=== PATIENT | male | born 1975 | race Caucasian/White ===

== ENCOUNTER 2018-12-14 10:35 | Emergency (ER) | payer OTHER ==
[2018-12-14 10:43] VITALS: BP 163/98
--- NOTE | 2018-12-14 11:12 | UC ---
Lower Extremity/Ankle HPI - HPI Summary HPI Summary: patient has history of gout, usually treated with indomethacin and colchicine and better within 24h. However this guero, pain started 5-6 days ago, he finished 6 doses colchicine and no better. he was on vacation 2 weeks ago and ate shell fish which may have precipitated symps. He was also put on Xarelto before vacation for a "clot in varicose vein" he states it was precautionary and that he was tod he could stop it after vacation. last dose was last night. he is concerned that tis episode is worse than any other time he had gout. He reports more swelling, redness and pain that is extending t toe and top of foot instead of just large toe joint. Denies fever or chills. denies trauma or skin breaks to foot but was swimming in unchlorinated water on vacation - History of Current Complaint Chief Complaint: UCLowerExtremity Stated Complaint: SWOLLEN TOE Time Seen by Provider: 12/14/18 10:46 Hx Obtained From: Patient Onset/Duration: Gradual Onset Severity Initially: Mild Severity Currently: Severe Pain Intensity: 8 Aggravating Factor(s): Ambulation, Other - touching area Alleviating Factor(s): Rest, Elevation Able to Bear Weight: Yes - Risk Factors Gout Risk Factors: Age Over 40, Male, Hypertension, Obesity - Allergies/Home Medications Allergies/Adverse Reactions: Allergies Allergy/AdvReac Type Severity Reaction Status Date / Time No Known Allergies Allergy Verified 12/14/18 10:43 PMH/Surg Hx/FS Hx/Imm Hx Previously Healthy: Yes Cardiovascular History: Hypertension, Other - varicose veins Respiratory History: Asthma - Surgical History Surgical History: None Surgery Procedure, Year, and Place: None - Family History Known Family History: Positive: Hypertension, Diabetes, Other - Varicose veins. Denies history of hypercoagulable states in his fam. - Social History Occupation: Employed Full-time Lives: With Family Alcohol Use: Daily Substance Use Type: None Smoking Status (MU): Never Smoked Tobacco Review of Systems All Other Systems Reviewed And Are Negative: Yes Constitutional: Positive: Negative Skin: Positive: Other - erythemic swollen, warm, tender area R MCP and great toe Respiratory: Positive: Negative Cardiovascular: Positive: Negative Musculoskeletal: Positive: Decreased ROM - R 1st toe d/t pain Neurological: Positive: Negative Psychological: Positive: Negative Is Patient Immunocompromised?: No Physical Exam Triage Information Reviewed: Yes Appearance: Pain Distress - hold toe away from contact with shoe, guarding area from touch, Obese Vital Signs: Initial Vital Signs Temp 98.4 F 12/14/18 10:40 Pulse 84 12/14/18 10:40 Resp 17 12/14/18 10:40 BP 163/98 12/14/18 10:40 Pulse Ox 99 12/14/18 10:40 Vital Signs Reviewed: Yes Cardiovascular Exam: Normal Abdominal Exam: Normal Neurological Exam: Normal Psychological Exam: Normal Skin Exam: Other - erythemic, swollen, war, tender R MTP and toe joint that extends to top of foot Lower Extremity Course/Dx - Differential Dx/Diagnosis Differential Diagnosis/HQI/PQRI: Bursitis, Cellulitis, Gout Provider Diagnosis: Gout Discharge - Sign-Out/Discharge Documenting (check all that apply): Patient Departure All imaging exams completed and their final reports reviewed: No Studies - Discharge Plan Condition: Stable Disposition: HOME Prescriptions: Cephalexin CAP* [Keflex 500 CAP*] 500 mg PO QID #28 cap Indomethacin 50 mg PO TID #30 capsule Patient Education Materials: Gout (ED) Referrals: Darryl Everett MD [Primary Care Provider] - (as scheduled next week) Additional Instructions: STOP XARELTO ( DICUSSED WITH YOUR NIGHT COURT MAGISTRATE.) START INDOCIN TOMORROW (24HOURS AFTER LAST DOSE XARELTO ICE AND ELEVATE YOUR FOOT OFTEN POSSIBLE TYLENOL 1000MG EVERY 6 HOURS NEEDED FOR PAIN START ANTIBIOTIC TODAY - Billing Disposition and Condition Condition: STABLE Disposition: Home
--- OUTSIDE RECORDS SUMMARY | 2018-12-14 12:21 | XMS REPORT | Continuity of Care Document ---
:1975 External Reference #:[id number] Author Name Monique Sevilla Care Team Providers Name Role Phone Darryl Everett III, MD Primary Care Physician Unavailable Payers Date Identification Numbers Payment Provider Subscriber Policy Number: [id number] [employer] Reny Garza PayID: [id number] [address] [place] [address] Problems Active Problems Provider Date Anemia Darryl Everett M.D. Onset: 08/16/2017 Gastroesophageal reflux disease Darryl Everett M.D. Onset: 08/16/2017 Impaired fasting glycaemia Darryl Everett M.D. Onset: 08/16/2017 Mixed hyperlipidemia Darryl Everett M.D. Onset: 08/16/2017 Gout Darryl Everett M.D. Onset: 11/04/2018 Essential hypertension Darryl Everett M.D. Onset: 2018 Family History Date Family Member(s) Observation Comments Father Diabetes Father Chronic Obstructive Pulmonary Disease (COPD) Mother due to Accidental () - MVA; age 28 First Sister Diabetes Type I half sister with father in common Second Sister Drug Addiction half sister with mother in common Free Text Paternal grandmother of DVT. 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 Jogs 1 hr weekly, walks the dogs daily Allergies, Adverse Reactions, Alerts Description No Known Drug Allergies Medications Active Medications SIG Qnty Indications Ordering Provider Date Xarelto 1 PO qd - take 30tabs I80.01 Aubree Saucedo, 11/27/2018 10mg Tablets before evening M.D. meal. Take this for 45 days Losartan Potassium 1 by mouth 90tabs I10 Darryl Everett, 2018 50mg every day M.D. Tablets Colcrys 2 by mouth with 12tabs Darryl Everett, 10/22/2018 0.6mg Tablets acute gout sx. M.D. Repeat with 1 tab 1 hr later Melatonin 1 by mouth Unknown 5mg Capsules every night Lansoprazole Take One Unknown 15mg Capsule By Capsules DR Mouth Every Day Advair Diskus inhale one puff 60units Daryrl Everett, by mouth twice M.D. 250-50mcg/Dose a day Aerosol Proair HFA inhale two 8.5units Darryl Everett, 108(90Base) puffs by mouth M.D. mcg/Act Aerosol every 4 hours as needed History Medications Colchicine Edis Vasquez, SHIRA 10/22/2018 - 0.6mg Tablets 10/22/2018 Aspirin 1 by mouth every Unknown - 325mg Tablets day 11/04/2018 Nexium 1 by mouth every Unknown - 20mg Capsules DR 01/16/2017 Montelukast Sodium 1 by mouth every 60tabs Darryl Everett, - 10mg day M.D. 2018 Tablets Nasacort Allergy 24HR 2 spray both Unknown - nares once daily 2018 55mcg/Act Aerosol Zyrtec- OTC Unknown - Tablets ER 12HR 2018 Zantac 150 Maximum 1 by mouth twice Unknown - Strength a day 07/07/2017 150mg Tablets Immunizations CPT Code Status Date Vaccine Lot # [id number] Given 03/29/2018 Influenza Virus Vaccine, Quadrivalent, Split, Preservative Free [id number] Given 01/16/2017 Influenza Virus Vaccine, Quadrivalent, Split, [id number] Preservative Free 03823 Given 12/05/2016 Pneumonia Vaccine [id number] Given 12/05/2016 Tdap - Tetanus/Diptheria/Acellular Pertussis [id number] Vital Signs Date Vital Result Comment 11/27/2018 1:14pm Height 74 inches 6'2" Weight 391.00 lb Heart Rate 74 /min BP Systolic 133 mmHg BP Diastolic 92 mmHg O2 % BldC Oximetry 96 % BMI (Body Mass Index) 50.2 kg/m2 2018 10:07am Height 74 inches 6'2" Weight 380.00 lb Heart Rate 72 /min BP Systolic 145 mmHg recheck 146/98 BP Diastolic 98 mmHg recheck 146/98 Body Temperature 97.8 F O2 % BldC Oximetry 97 % BMI (Body Mass Index) 48.8 kg/m2 11/04/2018 9:25am Height 74 inches 6'2" Weight 381.00 lb Heart Rate 68 /min BP Systolic Sitting 155 mmHg BP Diastolic Sitting 103 mmHg BMI (Body Mass Index) 48.9 kg/m2 08/16/2017 11:41am Weight 366.00 lb Heart Rate 69 /min BP Systolic Sitting 132 mmHg 136/90, 139/97 pt's machine BP Diastolic Sitting 80 mmHg 136/90, 139/97 pt's machine O2 % BldC Oximetry 94 % 07/16/2017 10:12am Weight 373.00 lb Heart Rate 72 /min BP Systolic Sitting 150 mmHg L BP Diastolic Sitting 96 mmHg L O2 % BldC Oximetry 96 % 01/16/2017 9:58am Height 74 inches 6'2" Weight 352.00 lb Heart Rate 77 /min BP Systolic Sitting 136 mmHg BP Diastolic Sitting 92 mmHg Body Temperature 98.2 F O2 % BldC Oximetry 97 % BMI (Body Mass Index) 45.2 kg/m2 12/05/2016 1:37pm Height 74 inches 6'2" Weight 361.50 lb Heart Rate 80 /min BP Systolic Sitting 150 mmHg BP Diastolic Sitting 80 mmHg Respiratory Rate 16 /min BMI (Body Mass Index) 46.4 kg/m2 Results Test Date Facility Test Result H/L Range Note Order 2018 [facility] EKG viewed by Dr. Everett Urine Microalbumin 11/04/2018 [facility] Ur Microalbumin < 15.0 mg/L Random [address] (mg/L) [place] [address] [phone] Urine Creatinine 95.47 mg/dL Urine Microalbumin/Creatinine TNP <31 1 Comp Metabolic 11/04/2018 [facility] Sodium 139 mmol/L Normal 135-145 Panel [address] [place] [address] [phone] Potassium 4.7 mmol/L Normal 3.5-5.0 Chloride 102 mmol/L Normal 101-111 Co2 Carbon Dioxide 28 mmol/L Normal 22-32 Anion Gap 9 mmol/L Normal 2-11 Glucose 110 mg/dL High 70-100 Blood Urea Nitrogen 15 mg/dL Normal 6-24 Creatinine 0.91 mg/dL Normal 0.67-1.17 BUN/Creatinine Ratio 16.5 Normal 8-20 Calcium 9.6 mg/dL Normal 8.6-10.3 Total Protein 7.3 g/dL Normal 6.4-8.9 Albumin 4.3 g/dL Normal 3.2-5.2 Globulin 3.0 g/dL Normal 2-4 Albumin/Globulin Ratio 1.4 Normal 1-3 Total Bilirubin 0.50 mg/dL Normal 0.2-1.0 Alkaline Phosphatase 74 U/L Normal 34-104 Alt 33 U/L Normal 7-52 Ast 23 U/L Normal 13-39 Egfr Non- 92.3 >60 Egfr 111.7 >60 2 Laboratory test 11/04/2018 [facility] Magnesium 2.0 mg/dL Normal 1.9-2.7 3 finding [address] [place] [address] [phone] Vitamin B12 And 11/04/2018 [facility] Vitamin B12 366 pg/mL Normal 180-914 4 Folate Serum [facility] [place] [address] [phone] Folic Acid (Folate) 7.15 ng/mL >3.99 5 CBC No Diff 11/04/2018 [facility] White Blood 6.1 10^3/uL Normal 3.5-10.8 [address] [facility] [address] [phone] Red Blood Count 5.46 10^6/uL Normal 4.18-5.48 Hemoglobin 13.7 g/dL Low 14.0-18.0 Hematocrit 43 % Normal 42-52 Mean Corpuscular Volume 78 fL Low 80-94 Mean Corpuscular Hemoglobin 25 pg Low 27-31 Mean Corpuscular HGB Conc 32 g/dL Normal 31-36 Red Cell Distribution Width 16 % High 10-15 Platelet Count 231 10^3/uL Normal 150-450 Mean Platelet Volume 8.4 fL Normal 7.4-10.4 Iron & Iron Binding 11/04/2018 [facility] Iron 35 g/dL Low 50-[address] [place] [address] [phone] Unsaturated Iron Binding < 450 g/dL Total Iron Binding Capacity 465 g/dL High 250-450 Transferrin 332 mg/dL Normal 203-362 % Iron Saturation 8 % Low 15-55 Lipid Profile 11/04/2018 [facility] Triglycerides 232 mg/dL 6 (Trig/Chol/HDL) DRIVE [place], [place] [id number] [phone] Cholesterol 232 mg/dL 7 HDL Cholesterol 46.0 mg/dL 8 LDL Cholesterol 140 mg/dL 9 Laboratory test 11/04/2018 [facility] Uric Acid 8.0 mg/dL High 4.4-7.[address] [place], [place] [id number] [phone] Hemoglobin A1c (Glyco HGB) 6.2 % High 4.0-5.6 11 Laboratory test 09/10/2017 [facility] Clotest SEE RESULT [address] [place], [place] [id number] [phone] Laboratory test 09/10/2017 [facility] Surgical SEE RESULT [address] [place] [address] Order [phone] Occult 08/20/2017 [facility] Occult Blood - Positive X 2 Blood,Stool (3 Stool (o3 Spec) Laboratory test 07/16/2017 [facility] Ferritin < 10.0 ng/mL Low 24-[address] [place] [address] [phone] Hemoglobin A1c (Glyco HGB) 6.2 % High 4.0-5.6 14 Iron & Iron Binding 07/16/2017 [facility] Iron 24 g/dL Low 50-[address] [place], [place] [id number] [phone] Unsaturated Iron Binding 449 g/dL Total Iron Binding Capacity 473 g/dL High 250-450 Transferrin 338 mg/dL Normal 203-362 % Iron Saturation 5 % Low 15-55 CBC Auto 07/16/2017 [facility] White Blood 6.4 10^3/uL Normal 3.5-10.[address] [place] [address] [phone] Red Blood Count 5.09 10^6/uL Normal 4.0-5.4 Hemoglobin 11.7 g/dL Low 14.0-18.0 Hematocrit 37 % Low 42-52 Mean Corpuscular Volume 73 fL Low 80-94 15 Mean Corpuscular Hemoglobin 23 pg Low 27-31 Mean Corpuscular HGB Conc 31 g/dL Normal 31-36 Red Cell Distribution Width 17 % High 10.5-15 Platelet Count 239 10^3/uL Normal 150-450 Mean Platelet Volume 8 um3 Normal 7.4-10.4 Abs Neutrophils 3.7 10^3/uL Normal 1.5-7.7 Abs Lymphocytes 1.9 10^3/uL Normal 1.0-4.8 Abs Monocytes 0.5 10^3/uL Normal 0-0.8 Abs Eosinophils 0.3 10^3/uL Normal 0-0.6 Abs Basophils 0 10^3/uL Normal 0-0.2 Abs Nucleated RBC 0 10^3/uL Granulocyte % 57.6 % Normal 38-83 Lymphocyte % 29.8 % Normal 25-47 Monocyte % 7.4 % High 0-7 Eosinophil % 4.7 % Normal 0-6 Basophil % 0.5 % Normal 0-2 Nucleated Red Blood Cells % 0 Occult 01/22/2017 [facility] Occult Blood - Negative x 3 16 Blood,Stool (3 Stool Spec) Laboratory test 01/16/2017 [facility] Hemoglobin A1c 5.9 % Normal Less [address] (Glyco HGB) than 6.0 [place] [address] [phone] Iron & Iron 01/16/2017 [facility] Iron 41 g/dL Low 50-212 Binding Capacity [address] [place] [address] [phone] Unsaturated Iron Binding 432 g/dL Normal Total Iron Binding Capacity 473 g/dL High 250-450 % Iron Saturation 9 % Low 15-55 Laboratory test 01/16/2017 [facility] Ferritin 13.1 Low 24- [address] ng/[place] [address] [phone] CBC Auto Diff 01/16/2017 [facility] White Blood 5.5 Normal 3.5 -10.[address] Count 10^3/[place] [address] [phone] Red Blood Count 5.31 10^6/uL Normal 4.0-5.4 Hemoglobin 12.6 g/dL Low 14.0-18.0 Hematocrit 40 % Low 42-52 Mean Corpuscular Volume 75 fL Low 80-94 18 Mean Corpuscular Hemoglobin 24 pg Low 27-31 Mean Corpuscular HGB Conc 32 g/dL Normal 31-36 Red Cell Distribution Width 17 % High 10.5-15 Platelet Count 234 10^3/uL Normal 150-450 Mean Platelet Volume 9 um3 Normal 7.4-10.4 Abs Neutrophils 3.1 10^3/uL Normal 1.5-7.7 Abs Lymphocytes 1.6 10^3/uL Normal 1.0-4.8 Abs Monocytes 0.6 10^3/uL Normal 0-0.8 Abs Eosinophils 0.2 10^3/uL Normal 0-0.6 Abs Basophils 0 10^3/uL Normal 0-0.2 Abs Nucleated RBC 0 10^3/uL Normal Granulocyte % 56.3 % Normal 38-83 Lymphocyte % 29.0 % Normal 25-47 Monocyte % 10.2 % High 1-9 Eosinophil % 4.2 % Normal 0-6 Basophil % 0.3 % Normal 0-2 Nucleated Red Blood Cells % 0 Normal Laboratory test 01/15/2017 [facility] Uric Acid 7.9 mg/dL High 4.4-7.6 [address] [place] [address] [phone] CBC Auto Diff 01/15/2017 [facility] White 3.8 Normal 3.5-10.[address] Blood 10^3/[place] [address] Count [phone] Red Blood Count 5.28 10^6/uL Normal 4.0-5.4 Hemoglobin 12.4 g/dL Low 14.0-18.0 Hematocrit 39 % Low 42-52 Mean Corpuscular Volume 74 fL Low 80-94 Mean Corpuscular Hemoglobin 24 pg Low 27-31 Mean Corpuscular HGB Conc 32 g/dL Normal 31-36 Red Cell Distribution Width 17 % High 10.5-15 Platelet Count 212 10^3/uL Normal 150-450 Mean Platelet Volume 8 um3 Normal 7.4-10.4 Abs Neutrophils 1.7 10^3/uL Normal 1.5-7.7 Abs Lymphocytes 1.5 10^3/uL Normal 1.0-4.8 Abs Monocytes 0.4 10^3/uL Normal 0-0.8 Abs Eosinophils 0.2 10^3/uL Normal 0-0.6 Abs Basophils 0 10^3/uL Normal 0-0.2 Abs Nucleated RBC 0 10^3/uL Normal Granulocyte % 45.3 % Normal 38-83 Lymphocyte % 38.6 % Normal 25-47 Monocyte % 9.4 % High 1-9 Eosinophil % 6.1 % High 0-6 Basophil % 0.6 % Normal 0-2 Nucleated Red Blood Cells % 0.1 Normal Comp Metabolic 01/15/2017 [facility] Sodium 137 mmol/L Normal 133-145 Panel [address] [place], [place] [address] [phone] Potassium 4.1 mmol/L Normal 3.5-5.0 Chloride 102 mmol/L Normal 101-111 Co2 Carbon Dioxide 27 mmol/L Normal 22-32 Anion Gap 8 mmol/L Normal 2-11 Glucose 111 mg/dL High 70-100 Blood Urea Nitrogen 16 mg/dL Normal 6-24 Creatinine 0.99 mg/dL Normal 0.67-1.17 BUN/Creatinine Ratio 16.2 Normal 8-20 Calcium 9.4 mg/dL Normal 8.6-10.3 Total Protein 6.9 g/dL Normal 6.4-8.9 Albumin 4.1 g/dL Normal 3.2-5.2 Globulin 2.8 g/dL Normal 2-4 Albumin/Globulin Ratio 1.5 Normal 1-3 Total Bilirubin 0.90 mg/dL Normal 0.2-1.0 Alkaline Phosphatase 63 U/L Normal 34-104 Alt 24 U/L Normal 7-52 Ast 22 U/L Normal 13-39 Egfr Non- 84.2 Normal >60 Egfr 108.2 Normal >60 20 Lipid Profile 01/15/2017 [facility] Cholesterol 206 mg/dL Normal 21 (Trig/Chol/HDL) [address] [place] [address] [phone] Triglycerides 273 mg/dL Normal 22 HDL Cholesterol 42.2 mg/dL Normal 23 LDL Cholesterol 109 mg/dL Normal 24 1 Unable to calculate due to low microalbumin 2 Because ethnic data is not always readily available, this report includes an eGFR for both -Americans and non- Americans. The National Kidney Disease Education Program (NKDEP) does not endorse the use of the MDRD equation for patients that are not between the ages of 18 and 70, are , have extremes of body size, muscle mass, or nutritional status, or are non- or non-. According to the National Kidney Foundation, irrespective of diagnosis, the stage of the disease is based on the level of kidney function: Stage Description GFR(mL/min/1.73 m(2)) 1 Kidney damage with normal or decreased GFR 90 2 Kidney damage with mild decrease in GFR 60-89 3 Moderate decrease in GFR 30-59 4 Severe decrease in GFR 15-29 5 Kidney failure <15 (or dialysis) 3 FASTING 4 Normal Range 180 to 914 Indeterminate Range 145 to 180 Deficient Range <145 5 FASTING 6 Desirable: <150 Borderline High: 150-199 High: 200-499 Very High: >500 7 Desirable: <200 Borderline High: 200-239 High: >239 8 Low: <40 Desirable: 40-60 High: >60 9 Desirable: <100 Near Optimal: 100-129 Borderline High: 130-159 High: 160-189 Very High: >189 10 FASTING 11 Therapeutic target for the treatment of diabetes mellitus patients is <7% HBA1C, and in selective patients <6.0%. Please refer to [place] [employer] diabetic care guidelines for further information. 12 SEE RESULT BELOW Name: WILL ANDRES : [address]: Edy Mao MD Acct: [id number] Unit: [id number] AGE: 41 Location: ENDO Re09/10/17 SEX: M Status: REG REF SPEC: [id number] ELIZABETH: 09/10/17-[address] [facility] [address]: Edy Mao MD REQ: [id number] RECD: 09/10/17 STATUS: CHRIS AGUAYO DR: Darryl Everett III, MD _ SOURCE: GAS ANTRUM SPDESC: ORDERED: Clotest Procedure Result Reported Site Clotest Final 09/11/17- 901 ML Clotest Negative * ML - Main Lab . END OF REPORT DEPARTMENT OF PATHOLOGY, [address] [place] [address] Antonio Hernandez M.D. Director [facility] # [id number] 13 SEE RESULT BELOW Name: WILL ANDRES Filippo : [address]: Edy Mao MD Acct: [id number] Unit: [id number] AGE: 41 Location: ENDO Re09/10/17 SEX: M Status: DEP REF SPEC: [id number] ELIZABETH: 09/10/17-[address] [facility] [address]: Edy Mao MD REQ: [id number] RECD: 09/10/17-1316 STATUS: SURAJ AGUAYO DR: Darryl Everett III, MD _ ORDERED: LEVEL 4/3 FINAL DIAGNOSIS 1. Duodenum, biopsy: -- Benign small intestinal mucosa with no significant pathologic abnormalities. -- No evidence of villous blunting or increased intraepithelial lymphocytes. 2. Stomach, body, biopsy: -- Body-type gastric mucosa with superficial red blood cell extravasation and no other significant pathologic abnormalities. -- No evidence of Helicobacter organisms. 3. Gastroesophageal junction, biopsy: -- Squamous and columnar mucosa with chronic and focal active inflammation. -- Intestinal metaplasia is absent. -- Dysplasia is absent. POST-OPERATIVE DIAGNOSIS EGD: esophagus ? normal; stomach ? ulcers, biopsy; duodenum ? normal GROSS DESCRIPTION 1. The specimen is received in formalin labeled, Duodenal Biopsies, and consists of a 0.5 x 0.3 x 0.2 cm elmore-pink irregular soft tissue fragment which is submitted entirely in one cassette. 2. The specimen is received in formalin labeled, Gastric Body Biopsy, and consists of a 0.7 x 0.3 x 0.1 cm elmore-pink irregular soft tissue fragment which is submitted entirely in one cassette. 3. The specimen is received in formalin labeled, GE Junction Biopsy, and consists of a 0.4 x 0.2 x 0.1 cm elmore-white to pink irregular soft tissue fragment which is submitted entirely in one cassette. CONTINUED ON NEXT PAGE DEPARTMENT OF PATHOLOGY, [address] [place] [address] Antonio Hernandez M.D. Director [facility] # [id number] RUN DATE: 09/11/17 [facility] LAB LIVE PAGE 2 Patient: WILL ANDRES [id number] (Continued) GROSS DESCRIPTION (Continued) Signed by and Reported on: Tiffani Maria MD 09/11/17 1145 END OF REPORT DEPARTMENT OF PATHOLOGY, [address] [place] [address] Atnonio Hernandez M.D. Director [facility] # [id number] 14 Therapeutic target for the treatment of diabetes mellitus patients is <7% HBA1C, and in selective patients <6.0%. Please refer to [place] [employer] diabetic care guidelines for further information. 15 Consistent with Previous Results Reported on 01/15/17 16 Negative x 3 17 Therapeutic target for the treatment of diabetes Mellitus patients is <7% HBA1C, and in selective patients <6.0%.Please refer to [place] [employer] Diabetic care guidelines for further information. 18 Consistent with previous results on 01/15/2017. 19 FASTING 20 Because ethnic data is not always readily available, this report includes an eGFR for both -Americans and non- Americans. The National Kidney Disease Education Program (NKDEP) does not endorse the use of the MDRD equation for patients that are not between the ages of 18 and 70, are , have extremes of body size, muscle mass, or nutritional status, or are non- or non-. According to the National Kidney Foundation, irrespective of diagnosis, the stage of the disease is based on the level of kidney function: Stage Description GFR(mL/min/1.73 m(2)) 1 Kidney damage with normal or decreased GFR 90 2 Kidney damage with mild decrease in GFR 60-89 3 Moderate decrease in GFR 30-59 4 Severe decrease in GFR 15-29 5 Kidney failure <15 (or dialysis) 21 Desirable <200 Borderline high 200-239 High >239 22 Desirable <150 Borderline high 150-199 High 200-499 Very High >500 23 Low <40 Desirable: 40-60 High: >60 24 Desirable: <100 mg/dL Near Optimal: 100-129 mg/dL Borderline High: 130-159 mg/dL High: 160-189 mg/dL Very High: >189 mg/dL Procedures Date Code Description Status 2018 03266 EKG Tracing & Interpretation Completed Encounters Type Date Location Provider Dx Diagnosis Office Visit 2018 [facility] E. Marguerite, I10 Essential ( primary) 10:00a Muna Drake M.D. hypertension D64.9 Anemia, unspecified K21.9 Gastro-esophageal reflux disease without esophagitis R73.01 Impaired fasting glucose M10.9 Gout, unspecified Office Visit 11/04/2018 9:20a [facility] Maximo Miller Z00.00 Encntr for Muna Everett M.D. general adult medical exam w/o abnormal findings R03.0 Elevated blood-pressure reading, w/o diagnosis of htn K21.9 Gastro-esophageal reflux disease without esophagitis D64.9 Anemia, unspecified E78.2 Mixed hyperlipidemia R73.01 Impaired fasting glucose M10.9 Gout, unspecified I80.01 Phlebitis and thombophlb of superfic vessels of r low extrem Office Visit 08/16/2017 DoNotUse [facility] Maximo Miller D64.9 Anemia, 11:40a Arleen Everett M.D. unspecified R03.0 Elevated blood-pressure reading, w/o diagnosis of htn K21.9 Gastro-esophageal reflux disease without esophagitis R73.01 Impaired fasting glucose E78.2 Mixed hyperlipidemia Office 07/16/2017 DoNotUse [facility] Maximo Miller R03.0 Elevated Visit 10:00a Arleen Everett M.D. blood-pressure reading, w/o diagnosis of htn D64.9 Anemia, unspecified R73.01 Impaired fasting glucose K21.9 Gastro-esophageal reflux disease without esophagitis Office 01/16/2017 DoNotUse [facility] Maximo Miller R03.0 Elevated Visit 10:00a Arleen Everett M.D. blood-pressure reading, w/o diagnosis of htn E78.2 Mixed hyperlipidemia R73.01 Impaired fasting glucose K21.9 Gastro-esophageal reflux disease without esophagitis M10.9 Gout, unspecified D64.9 Anemia, unspecified Z23 Encounter for immunization Office Visit 12/05/2016 [facility] Maximo Miller M10.9 Gout, 1:00p Arleen Everett M.D. unspecified K21.9 Gastro-esophageal reflux disease without esophagitis J45.909 Unspecified asthma, uncomplicated R03.0 Elevated blood-pressure reading, w/o diagnosis of htn R21 Rash and other nonspecific skin eruption Z13.220 Encounter for screening for lipoid disorders Z23 Encounter for immunization Plan of Treatment Future Appointment(s):12/10/2018 11:40 am - Darryl Eve[facility] M.D. at [facility] - Aubree Saucedo M.D.I80.01 Phlebitis and thrombophlebitis of superficial vessels of rigNew Medication:Xarelto 10 mg - 1 PO qd - take before evening meal. Take this for 45 daysComments:Take the Xarelto once daily - take this before the evening meal Recheck blood tests on
--- OUTSIDE RECORDS SUMMARY | 2018-12-14 12:21 | XMS REPORT | Continuity of Care Document ---
:1975 External Reference #:[id number] Author Name Darryl Everett M.D. (transmitted by agent of provider Lorraine Rodriguez) Address [address], [place] [address] Care Team Providers Name Role Phone Darryl Everett III, MD - Internal Care Team Information Colored Leather Setter [phone] Medicine Lenny Meza MD - Allergy & Care Team Information Colored Leather Setter Immunology Edy Mao MD - Gastroenterology Care Team Information Colored Leather Setter Angel Xiong MD - Surgery Care Team Information Colored Leather Setter [phone] [facility] - Care Team Information Colored Leather Setter Interventional Radiology Technologist Problems Active Problems Provider Date Anemia Darryl Everett M.D. Onset: 08/16/2017 Gastroesophageal reflux disease Darryl Everett M.D. Onset: 08/16/2017 Impaired fasting glycaemia Darryl Everett M.D. Onset: 08/16/2017 Mixed hyperlipidemia Darryl Everett M.D. Onset: 08/16/2017 Gout Darryl Everett M.D. Onset: 11/04/2018 Essential hypertension Darryl Everett M.D. Onset: 2018 Social History Type Date Description Comments Sex Unknown ETOH Use 08/16/2017 Currently consumes 3-5 drinks 3 times a alcohol week per pt Tobacco Use Start: Unknown Patient has never smoked Smoking Status Reviewed: 12/10/18 Patient has never smoked Exercise Exercises regularly elliptical machine at Type/Frequency the Y 3 times a week for 30+ minutes. Jogs 1 hr weekly, walks the dogs daily Allergies, Adverse Reactions, Alerts Description No Known Drug Allergies Medications Active Medications SIG Qnty Indications Ordering Provider Date Losartan Potassium 1 by mouth 90tabs I10 Darryl Everett, 12/10/2018 every day M.D. 100mg Tablets Xarelto 1 PO qd - take 30tabs I80.01 Aubree Saucedo, 11/27/2018 10mg Tablets before evening M.D. meal. Take this for 45 days Colcrys 2 by mouth with 12tabs Darryl Everett, 10/22/2018 0.6mg Tablets acute gout sx. M.D. Repeat with 1 tab 1 hr later Melatonin 1 by mouth Unknown 5mg Capsules every night Lansoprazole Take One Unknown 15mg Capsule By Capsules DR Mouth Every Day Advair Diskus inhale one puff 60units Darryl Everett, by mouth twice M.D. 250-50mcg/Dose a day Aerosol Proair HFA inhale two 8.5units Darryl Everett, 108(90Base) puffs by mouth M.D. mcg/Act Aerosol every 4 hours as needed History Medications Losartan Potassium 1 by mouth every 90tabs I10 Darryl Everett, 2018 - 50mg day M.D. 12/10/2018 Tablets Colchicine Edis Vasquez NP 10/22/2018 - 0.6mg 10/22/2018 Tablets Immunizations CPT Code Status Date Vaccine Lot # [id number] Given 03/29/2018 Influenza Virus Vaccine, Quadrivalent, Split, Preservative Free [id number] Given 01/16/2017 Influenza Virus Vaccine, Quadrivalent, Split, [id number] Preservative Free [id number] Given 12/05/2016 Pneumonia Vaccine [id number] Given 12/05/2016 Tdap - Tetanus/Diptheria/Acellular Pertussis [id number] Vital Signs Date Vital Result Comment 12/10/2018 11:42am Height 74 inches 6'2" Weight 389.00 lb Heart Rate 75 /min BP Systolic Sitting 144 mmHg BP Diastolic Sitting 96 mmHg BMI (Body Mass Index) 49.9 kg/m2 11/27/2018 1:14pm Height 74 inches 6'2" Weight 391.00 lb Heart Rate 74 /min BP Systolic 133 mmHg BP Diastolic 92 mmHg O2 % BldC Oximetry 96 % BMI (Body Mass Index) 50.2 kg/m2 Results Test Date Facility Test Result H/L Range Note Order 2018 [facility] In-House EKG viewed by Dr. Marguerite Irving Metabolic 11/04/2018 [facility] Sodium 139 mmol/L Normal 135-145 [address] [place] [address] [phone] Potassium 4.7 mmol/L Normal 3.5-5.0 Chloride 102 [...] Egfr Non- 92.3 >60 Egfr 111.7 >60 1 Laboratory test 11/04/2018 [facility] Magnesium 2.0 mg/dL Normal 1.9-2.7 2 finding [address] [place] [address] [phone] Vitamin B12 And 11/04/2018 [facility] Vitamin B12 366 pg/mL Normal 180-914 3 Folate Serum [address] [place] [address] [phone] Folic Acid (Folate) 7.15 ng/mL >3.99 4 CBC No Diff 11/04/2018 [facility] White Blood 6.1 10^3/uL Normal 3.5-10.8 [address] [facility] [place] [address] [phone] Red Blood Count 5.46 10^6/uL Normal 4.18-5.48 [...] Normal 7.4-10.4 Iron & Iron Binding 11/04/2018 [facility] Iron 35 g/dL Low 50-[address] [place] [address] [phone] Unsaturated Iron Binding < 450 g/dL Total Iron Binding Capacity 465 g/dL High 250-450 Transferrin 332 mg/dL Normal 203-362 % Iron Saturation 8 % Low 15-55 Lipid Profile 11/04/2018 [facility] Triglycerides 232 mg/dL 5 (Trig/Chol/HDL) [address] [place] [address] [phone] Cholesterol 232 mg/dL 6 HDL Cholesterol 46.0 mg/dL 7 LDL Cholesterol 140 mg/dL 8 Laboratory test 11/04/2018 [facility] Uric Acid 8.0 mg/dL High 4.4-7.[address] [place] [address] [phone] Hemoglobin A1c (Glyco HGB) 6.2 % High 4.0-5.6 10 Urine Microalbumin 11/04/2018 [facility] Ur Microalbumin < 15.0 Random [address] [facility] (mg/L) mg/[place] [address] [phone] Urine Creatinine 95.47 mg/dL Urine Microalbumin/Creatinine TNP <31 11 1 Because ethnic data is not always readily [...] 15-29 5 Kidney failure <15 (or dialysis) 2 FASTING 3 Normal Range 180 to 914 Indeterminate Range 145 to 180 Deficient Range <145 4 FASTING 5 Desirable: <150 Borderline High: 150-199 High: 200-499 Very High: >500 6 Desirable: <200 Borderline High: 200-239 High: >239 7 Low: <40 Desirable: 40-60 High: >60 8 Desirable: <100 Near Optimal: 100-129 Borderline High: 130-159 High: 160-189 Very High: >189 9 FASTING 10 Therapeutic target for the treatment of diabetes mellitus patients is <7% HBA1C, and in selective patients <6.0%. Please refer to [place] [employer] diabetic care guidelines for further information. 11 Unable to calculate due to low microalbumin Procedures Date Code Description Status 2018 89167 EKG Tracing & Interpretation Completed Medical Devices Description No Information Available Encounters Type Date Location Provider Dx Diagnosis Office Visit 11/27/2018 [facility] Internal Aubree Saucedo, I80.01 Phlebitis and 1:00p Medicine - Noelle Tarango thombophlb of superfic vessels of r low extrem D64.9 Anemia, unspecified Office Visit 2018 10:00a [facility] Internal Darryl Miller I10 Essential ( primary) Medicine - Noelle Everett M.D. hypertension D64.9 Anemia, unspecified K21.9 Gastro-esophageal reflux disease without esophagitis R73.01 Impaired fasting glucose M10.9 Gout, unspecified Office Visit 11/04/2018 9:20a [facility] Internal Darryl Miller Z00.00 Encntr for Medicine - Noelle Everett M.D. general adult medical exam w/o abnormal findings R03.0 Elevated blood-pressure reading, w/o diagnosis of htn K21.9 Gastro-esophageal reflux disease without esophagitis D64.9 Anemia, unspecified E78.2 Mixed hyperlipidemia R73.01 Impaired fasting glucose M10.9 Gout, unspecified I80.01 Phlebitis and thombophlb of superfic vessels of r low extrem Assessments Date Code Description Provider 12/10/2018 I10 Essential (primary) hypertension Darryl Everett M.D. 12/10/2018 K21.9 Gastro-esophageal reflux disease without Darryl Everett M.D. esophagitis 12/10/2018 D64.9 Anemia, unspecified Darryl Everett M.D. 12/10/2018 I80.01 Phlebitis and thrombophlebitis of Darryl Everett M.D. superficial vessels of rig 11/27/2018 I80.01 Phlebitis and thrombophlebitis of Aubree Saucedo M.D. superficial vessels of rig 11/27/2018 D64.9 Anemia, unspecified Aubree Saucedo M.D. 2018 I10 Essential (primary) hypertension Darryl Everett M.D. 2018 D64.9 Anemia, unspecified Darryl Everett M.D. 2018 K21.9 Gastro-esophageal reflux disease without Darryl Everett M.D. esophagitis 2018 R73.01 Impaired fasting glucose Darryl Everett M.D. 2018 M10.9 Gout, swapnilified Darryl Everett M.D. 11/04/2018 Z00.00 Encounter for general adult medical Darryl Everett M.D. examination without abno 11/04/2018 R03.0 Elevated blood-pressure reading, without Darryl Everett M.D. diagnosis of hypert 11/04/2018 K21.9 Gastro-esophageal reflux disease without Darryl Everett M.D. esophagitis 11/04/2018 D64.9 Anemia, unspecified Darryl Everett M.D. 11/04/2018 E78.2 Mixed hyperlipidemia Darryl vEerett M.D. 11/04/2018 R73.01 Impaired fasting glucose Darryl Everett M.D. 11/04/2018 M10.9 Gout, swapnilified Darryl Everett M.D. 11/04/2018 I80.01 Phlebitis and thrombophlebitis of Darryl Everett M.D. superficial vessels of rig Plan of Treatment Future Appointment(s):01/15/2019 10:00 am - Darryl Everett M.D. at [facility] Internal Medicine - [facility]cmob12/10/2018 - Darryl Everett M.D.I10 Essential ( primary) hypertensionNew Medication:Losartan Potassium 100 mg - 1 by mouth every dayNew Labs:Basic Metabolic Panel, Ordered: 12/10/18Follow up:1 Month with home BPs and BP [id number] Gastro-esophageal reflux disease without [id number] Anemia, unspecifiedNew Labs:CBC No Diff, Ordered: I80.01 Phlebitis and thrombophlebitis of superficial vessels of rig Functional Status Description No Information Available Mental Status Description No Information Available Referrals Refer to Dr Reason for Referral Status Appt Date [facility] Metabolic syndrome, HTN; Received Partial Living healthy weight loss/prediabetic diet ed [address] [place], [place] [id number] [phone] Angel Xiong MD chronic varicose veins bilat with 2 episodes Sent of phlebitis on the R [address] [place] [address] [place] [address] [phone]
== END 2018-12-14 11:20 | disposition home or self-care (01) ==
LOC: UCEAST 10:35
DX: M10.9 Gout, unspecified (principal)
CPT/HCPCS: 99212; G0463